=== PATIENT | male | born 1970 | race Caucasian/White ===

== ENCOUNTER 2020-12-25 17:47 | Emergency (ER) | payer MEDICARE, OTHER ==
[~2020-12-25] VITALS: Ht 172.7 cm; Wt 65.8 kg
[2020-12-25] MEDS ORDERED: ZOFRAN4 MG IV (18:13)
[2020-12-25] MEDS ORDERED: TPN ELECTROLYTE20 M1 IV (18:14)
[2020-12-25] MEDS ORDERED: PROTONIX40 M4 IV (18:14)
[2020-12-25] MEDS ORDERED: BENADRYL ALLERG25 MG IV (18:14)
[2020-12-25 19:03] LABS: ABSOLUTE BASOPHILS 0.1 thou/uL (0.0-0.2); ABSOLUTE EOSINOPHILS 0.5 thou/uL (0.0-0.7); ABSOLUTE LYMPHOCYTES 1.4 thou/uL (0.8-5.3); ABSOLUTE MONOCYTES 0.5 thou/uL (0.0-1.2); ABSOLUTE NEUTROPHILS 2.3 thou/uL (1.6-8.1); BASOPHILS 1.1 %; EOSINOPHILS 9.6 %; HEMATOCRIT 28.2 % (42.0-52.0); HEMOGLOBIN 8.8 gm/dL (14.0-18.0); MCH 22.2 pg (26.0-34.0); MCV 71.6 fL (80.0-100.0); MONOCYTES 10.8 %; MPV 7.8 fl. (7.2-11.1); NUCLEATED RBCS 0 /100WBC; PLATELET COUNT* 252 thou/uL (150-400); POLYS 49.5 %; RBC 3.95 mil/uL (4.50-6.00); RDW-CV 20.6 % (10.5-14.5); WBC 4.7 thou/uL (4.0-11.0)
[2020-12-25 19:08] LABS: CALCIUM 8.5 mg/dL (8.5-10.1); CREATININE 1.1 mg/dL (0.6-1.3); POTASSIUM 4.5 mmol/L (3.5-5.1)
[2020-12-25 19:13] LABS: ALBUMIN 3.8 g/dL (3.4-5.0); TOTAL BILIRUBIN 0.3 mg/dL (<0.1-1.0); TOTAL PROTEIN 7.6 g/dL (6.4-8.2)
[2020-12-25 19:34] LABS: HYPOCHROMASIA 2+
[2020-12-25 19:35] LABS: LARGE PLATELETS RARE; MACROCYTES Occasional
[2020-12-25 19:36] LABS: ANISOCYTOSIS 1+; MICROCYTES Occasional; PLATELET ESTIMATE ADEQUATE
[2020-12-25 20:35] VITALS: BP 142/93
== END 2020-12-25 20:35 | disposition home or self-care (01) ==
LOC: M.ERS 17:47
PROVIDERS: Nurse Practitioner Family
DX: G89.29 Other chronic pain (principal); R10.84 Generalized abdominal pain; R11.2 Nausea with vomiting, unspecified; Z88.5 Allergy status to narcotic agent; Z88.8 Allergy status to other drugs, medicaments and biological substances

== ENCOUNTER 2021-04-05 20:27 | Emergency (ER) | payer MEDICARE, OTHER ==
[~2021-04-05] VITALS: Ht 172.7 cm; Wt 60.3 kg
[~2021-04-05 20:27] MED LIST: BENADRYL ALLERG25 MG IV; PROTONIX40 M4 IV; TPN ELECTROLYTE20 M1 IV; ZOFRAN4 MG IV
[2021-04-06 00:39] VITALS: BP 130/76
== END 2021-04-06 00:41 | disposition home or self-care (01) ==
LOC: M.ERS 20:27
DX: K31.84 Gastroparesis (principal); R11.2 Nausea with vomiting, unspecified; Z98.890 Other specified postprocedural states; Z79.899 Other long term (current) drug therapy; Z88.8 Allergy status to other drugs, medicaments and biological substances; Z88.5 Allergy status to narcotic agent

== ENCOUNTER 2021-04-28 09:05 | Emergency (ER) | payer MEDICARE, OTHER ==
[~2021-04-28] VITALS: Ht 172.7 cm; Wt 59.0 kg
[2021-04-28 09:14] VITALS: BP 147/84
== END 2021-04-28 09:27 | disposition home or self-care (01) ==
LOC: M.ERS 09:05
DX: R11.2 Nausea with vomiting, unspecified (principal); Z98.890 Other specified postprocedural states; Z88.5 Allergy status to narcotic agent; Z88.8 Allergy status to other drugs, medicaments and biological substances; Z79.899 Other long term (current) drug therapy

== ENCOUNTER 2021-07-06 19:34 | Emergency (ER) | payer MEDICARE, OTHER ==
[~2021-07-06] VITALS: Ht 172.7 cm; Wt 59.9 kg
[2021-07-06 20:30] LABS: HEMATOCRIT 27.8 % (42.0-52.0); HEMOGLOBIN 8.5 gm/dL (14.0-18.0); MCH 20.9 pg (26.0-34.0); MCHC 30.7 g/dL (28.0-37.0); MCV 68.1 fL (80.0-100.0); MPV 7.8 fl. (7.2-11.1); RBC 4.08 mil/uL (4.50-6.00); RDW-CV 19.2 % (10.5-14.5); WBC 3.9 thou/uL (4.0-11.0)
[2021-07-06 20:39] LABS: CALCIUM 8.1 mg/dL (8.5-10.1); POTASSIUM 3.9 mmol/L (3.5-5.1)
[2021-07-06 20:43] LABS: ALBUMIN 3.4 g/dL (3.4-5.0); TOTAL BILIRUBIN 0.2 mg/dL (<0.1-1.0); TOTAL PROTEIN 7.2 g/dL (6.4-8.2)
[2021-07-06 21:35] LABS: URINE BILIRUBIN NEGATIVE (Negative); URINE BLOOD 2+ (Negative); URINE CLARITY CLEAR; URINE COLOR YELLOW; URINE GLUCOSE-RANDOM NEGATIVE (Negative); URINE KETONES NEGATIVE (Negative); URINE LEUKOCYTES-REFLEX NEGATIVE (Negative); URINE NITRITE-REFLEX NEGATIVE (Negative); URINE PROTEIN TRACE (Negative); URINE UROBILINOGEN 0.2 E.U./dl (0.2-1.0)
[2021-07-06 22:07] LABS: CASTS None Seen /LPF (None Seen); SQUAMOUS 0-3 Few /LPF (0-3)
[2021-07-06 22:08] LABS: BACTERIA-REFLEX None Seen /HPF (None Seen); CRYSTALS None Seen /LPF (None Seen); URINE RBC 3-10 Few /HPF (0-2); URINE WBC-REFLEX 0-5 Rare /HPF (0-5)
[2021-07-06 22:20] VITALS: BP 125/70
== END 2021-07-06 22:20 | disposition home or self-care (01) ==
LOC: M.ERS 19:34
PROVIDERS: Nurse Practitioner Family; Personal Emergency Response Attendant
DX: R10.32 Left lower quadrant pain (principal); Z98.890 Other specified postprocedural states; Z79.899 Other long term (current) drug therapy; Z88.5 Allergy status to narcotic agent; Z88.8 Allergy status to other drugs, medicaments and biological substances

== ENCOUNTER 2021-08-03 19:59 | Emergency (ER) | payer MEDICARE, OTHER ==
[~2021-08-03] VITALS: Ht 172.7 cm; Wt 59.9 kg
[2021-08-03] MEDS ORDERED: TPN (20:12)
[2021-08-03 21:20] LABS: ABSOLUTE LYMPHOCYTES 1.1 thou/uL (0.8-5.3); ABSOLUTE MONOCYTES 0.5 thou/uL (0.0-1.2); ABSOLUTE NEUTROPHILS 1.1 thou/uL (1.6-8.1); BASOPHILS 1.2 %; HEMATOCRIT 28.3 % (42.0-52.0); HEMOGLOBIN 8.6 gm/dL (14.0-18.0); LYMPHOCYTES 39.9 %; MCH 20.8 pg (26.0-34.0); MCHC 30.3 g/dL (28.0-37.0); MCV 68.4 fL (80.0-100.0); MONOCYTES 17.3 %; MPV 8.4 fl. (7.2-11.1); NUCLEATED RBCS 0 /100WBC; PLATELET COUNT* 174 thou/uL (150-400); POLYS 40.6 %; RBC 4.14 mil/uL (4.50-6.00); RDW-CV 19.3 % (10.5-14.5); WBC 2.6 thou/uL (4.0-11.0)
[2021-08-03 21:27] LABS: CALCIUM 7.7 mg/dL (8.5-10.1); POTASSIUM 3.8 mmol/L (3.5-5.1)
[2021-08-03 21:31] LABS: ALBUMIN 3.2 g/dL (3.4-5.0); TOTAL BILIRUBIN 0.1 mg/dL (<0.1-1.0); TOTAL PROTEIN 6.8 g/dL (6.4-8.2)
[2021-08-03 22:15] LABS: PLATELET ESTIMATE ADEQUATE
[2021-08-03 22:16] LABS: ANISOCYTOSIS 2+; HYPOCHROMASIA 2+
[2021-08-03 22:17] LABS: MICROCYTES 3+
[2021-08-03] MEDS ORDERED: METRONIDAZOLE500 M4 PO (22:47)
[2021-08-03] MEDS ORDERED: CIPROFLOXACIN500 M1 PO (22:47)
[2021-08-03 22:55] VITALS: BP 145/85
== END 2021-08-03 22:55 | disposition home or self-care (01) ==
LOC: M.ERS 19:59
PROVIDERS: Physician Assistant
DX: K91.89 Other postprocedural complications and disorders of digestive system (principal); R11.2 Nausea with vomiting, unspecified; R10.32 Left lower quadrant pain; Z98.890 Other specified postprocedural states; Z93.1 Gastrostomy status; Z79.899 Other long term (current) drug therapy; Z88.5 Allergy status to narcotic agent; Z88.8 Allergy status to other drugs, medicaments and biological substances

== ENCOUNTER 2021-08-12 20:16 | Emergency (ER) | payer MEDICARE, OTHER ==
[~2021-08-12] VITALS: Ht 172.7 cm; Wt 60.8 kg
[~2021-08-12 20:16] MED LIST changes: +CIPROFLOXACIN500 M1 PO; +METRONIDAZOLE500 M4 PO; +TPN
[2021-08-13 00:18] LABS: ABSOLUTE LYMPHOCYTES 0.8 thou/uL (0.8-5.3); ABSOLUTE MONOCYTES 0.3 thou/uL (0.0-1.2); ABSOLUTE NEUTROPHILS 1.9 thou/uL (1.6-8.1); BASOPHILS 0.6 %; EOSINOPHILS 0.4 %; HEMOGLOBIN 9.4 gm/dL (14.0-18.0); LYMPHOCYTES 26.9 %; MCH 20.3 pg (26.0-34.0); MCHC 30.2 g/dL (28.0-37.0); MCV 67.3 fL (80.0-100.0); MONOCYTES 9.3 %; MPV 8.5 fl. (7.2-11.1); NUCLEATED RBCS 0 /100WBC; PLATELET COUNT* 186 thou/uL (150-400); POLYS 62.8 %; RDW-CV 19.6 % (10.5-14.5); WBC 3.1 thou/uL (4.0-11.0)
[2021-08-13 00:28] LABS: POTASSIUM 3.9 mmol/L (3.5-5.1)
[2021-08-13 01:11] VITALS: BP 133/87
== END 2021-08-13 01:12 | disposition home or self-care (01) ==
LOC: M.ERS 20:16
PROVIDERS: Emergency Medicine
DX: R10.32 Left lower quadrant pain (principal); Z79.899 Other long term (current) drug therapy; Z88.5 Allergy status to narcotic agent; Z88.8 Allergy status to other drugs, medicaments and biological substances